=== PATIENT | male | born 1980 | race Caucasian/White ===

== ENCOUNTER 2025-02-19 06:25 | Emergency (ER) | payer SELFPAY | END 2025-02-19 08:28 | disposition home or self-care (01) | LOC: MW.ED 06:25 | DX: S60.212A Contusion of left wrist, initial encounter (principal); S50.12XA Contusion of left forearm, initial encounter; F17.200 Nicotine dependence, unspecified, uncomplicated; Z79.899 Other long term (current) drug therapy; W18.40XA Slipping, tripping and stumbling without falling, unspecified, initial encounter | CPT/HCPCS: 73090-26-LT; 73090-LT; 73110-26-LT; 73110-LT; 99283 ==